=== PATIENT | female | born 1995 | race Caucasian/White ===

== ENCOUNTER 2017-08-07 22:27 | Emergency (ER) | payer OTHER ==
[~2017-08-07] VITALS: Ht 160 cm; Wt 62.3 kg
[2017-08-07 22:39] VITALS: BP 121/77
--- NOTE | 2017-08-07 22:48 | NUR ---
PT TAKEN TO BED 3
--- NOTE | 2017-08-07 22:55 | NUR ---
22/F BIB MOTHER C/O BUG BITE TO LEFT ARM X YESTERDAY, UNKNOWN BUG/INSECT. LEFT UPPER ARM NOTED WITH LOCALIZED ERYTHEMA AND SWELLING, WARM TO TOUCH, +PMSC. DENIES FEVER/CHILLS, N/V/D. DENIES PMH/RX/OTC
--- NOTE | 2017-08-07 23:25 | NUR ---
Dr. Napier evaluating patient at bedside.
[2017-08-07 23:58] VITALS: BP 117/76
== END 2017-08-07 23:55 | disposition home or self-care (01) ==
LOC: MED 22:27
DX: L03.114 Cellulitis of left upper limb (principal)
CPT/HCPCS: 99283

== ENCOUNTER 2019-06-27 18:52 | Emergency (ER) | payer OTHER ==
[~2019-06-27] VITALS: Ht 160 cm; Wt 72.6 kg
[2019-06-27 19:05] VITALS: BP 118/66
--- NOTE | 2019-06-27 19:10 | NUR ---
PT TRIAGED. VSS. PT TO RETURN TO LOBBY.
[2019-06-27 20:01] LABS: BASOPHILS % (AUTO) 0.4 % (0.0-2.0); EOSINOPHILS # (AUTO) 0.2 K/uL (0-0.4); EOSINOPHILS % (AUTO) 2.1 % (0.0-4.0); HEMATOCRIT 37.7 % (36-48); HEMOGLOBIN 12.1 g/dL (12.0-16.0); LYMPHOCYTES # (AUTO) 1.4 K/uL (2.5-16.5); LYMPHOCYTES % (AUTO) 16.1 % (20.5-51.1); MEAN CORPUSCULAR HEMOGLOBIN 28 pg (27-31); MEAN CORPUSCULAR HGB CONC 32 g/dL (33-37); MEAN CORPUSCULAR VOLUME 86.5 fL (80-94); MONOCYTES # (AUTO) 0.5 K/uL (0.8-1.0); MONOCYTES % (AUTO) 6.1 % (1.7-9.3); NEUTROPHILS # (AUTO) 6.4 K/uL (1.8-7.7); NEUTROPHILS % (AUTO) 75.3 % (42.2-75.2); PLATELET COUNT (AUTO) 374 K/uL (140-450); RED BLOOD CELL COUNT(AUTO) 4.36 MIL/uL (4.20-5.40); RED CELL DISTRIBUTION WIDTH 14.2 % (11.6-13.7); WHITE BLOOD COUNT (AUTO) 8.6 K/uL (4.8-10.8)
[2019-06-27 20:45] LABS: ANION GAP 10.8 (8-16); POTASSIUM 3.8 mmol/L (3.5-5.1)
[2019-06-27 20:50] LABS: ALBUMIN 3.7 g/dL (3.4-5.0); TOTAL BILIRUBIN 0.5 mg/dL (0.0-1.0)
--- NOTE | 2019-06-27 22:12 | NUR ---
PATIENT LEFT WITHOUT BEING SEEN BY DR. VÁSQUEZ. PT CALLED IN LOBBY AND PARKING LOT. NO ANSWER. NO FURTHER CARE PROVIDED FOR PATIENT.
[2019-06-27 22:20] LABS: APPEARANCE,URINE CLEAR (CLEAR); BILIRUBIN,URINE NEGATIVE (NEGATIVE); BLOOD, URINE NEGATIVE (NEGATIVE); COLOR,URINE YELLOW (YELLOW); LEUKOCYTE ESTERASE ,URINE NEGATIVE (NEGATIVE); NITRITE, URINE NEGATIVE (NEGATIVE); UGLUCOSE NEGATIVE (NEGATIVE)
--- NOTE | 2019-06-27 23:36 | NUR ---
pt called at 22:12 no show
== END 2019-06-27 22:12 | disposition left against medical advice (07) ==
LOC: MED 18:52
DX: R10.11 Right upper quadrant pain (principal); Z53.21 Procedure and treatment not carried out due to patient leaving prior to being seen by health care provider
CPT/HCPCS: 36415; 80053; 81003; 81025; 83690; 85025; 99281

== ENCOUNTER 2020-10-24 18:06 | Emergency (ER) | payer OTHER ==
[~2020-10-24] VITALS: Ht 160 cm; Wt 73.0 kg
--- NOTE | 2020-10-24 18:12 | NUR ---
PT TAKEN TO BED 6.
[2020-10-24 18:13] VITALS: BP 127/85
--- NOTE | 2020-10-24 18:56 | NUR ---
Patient discharged with v/s stable. Written and verbal after care instructions given and explained. Patient alert, oriented and verbalized understanding of instructions. Ambulatory with steady gait. All questions addressed prior to discharge. ID band removed. Patient advised to follow up with PMD. Rx of PROMETHAZINE, ZOFRAN ODT given. Patient educated on indication of medication including possible reaction and side effects. Opportunity to ask questions provided and answered.
== END 2020-10-24 18:56 | disposition home or self-care (01) ==
LOC: MED 18:06 → EDSEX 18:06 → MED 18:56
DX: R11.2 Nausea with vomiting, unspecified (principal); R05 Cough; R63.0 Anorexia; Z20.822 Contact with and (suspected) exposure to COVID-19
CPT/HCPCS: 99283